=== PATIENT | male | born 1985 | race Caucasian/White ===

== ENCOUNTER 2020-09-07 10:28 | Emergency (ER) | payer OTHER, SELFPAY ==
[2020-09-07 10:39] VITALS: BP 118/73; PULSE 91; RESP 17; TEMP 37; O2SAT 99; BMI 21.9
--- NOTE | 2020-09-07 11:01 | ED_ITS ---
HPI - Medical Clearance General Chief complaint: Medical Clearance Stated complaint: MEDICATION REFILL Time Seen by Provider: 09/07/20 10:57 Source: patient Mode of arrival: ambulatory Limitations: no limitations History of Present Illness HPI Narrative: 35-year-old male with history of type 1 diabetes and also history of substance abuse who presents requesting refill for his test strips and insulin which he is going to run out today. States he is in between primary care doctors and awaiting appointment possibly at the [facility]. Offers no other complaints. Blood sugar usually in the 120-1 60s today prior to arrival was 158. Offers no other complaints. Treatments Prior to Arrival: none Related Information Allergies Allergy/AdvReac Type Severity Reaction Status Date / Time No Known Allergies Allergy Verified 09/07/20 10:42 Review of Systems Review of Systems: Constitutional: No Weight loss, No Fever, No Chills, No Night Sweats, No Fatigue, No Malaise ENT/Mouth: No Hearing loss, No Ear Pain, No Nasal Congestion, No Sinus Pain, No Hoarseness, No sore throat Eyes: No Eye Pain, No Swelling, No Redness, No Foreign Body, No Discharge, No Vision Changes Cardiovascular: No Chest Pain Respiratory: No Cough, No Sputum, No Wheezing Genitourinary: no irregular bleeding, No Dysuria, No Urinary Frequency, No Hematuria, No Urinary Incontinence, No Urgency, No Flank Pain, No Urinary Flow Changes, No Hesitancy Musculoskeletal: No joint pain, No Myalgias, No Joint Swelling Skin: No Skin Lesions, No rash Neuro: No Weakness, No Numbness, No Paresthesias, No Loss of Consciousness, No Dizziness, No Headache Psych:No Social Issues Heme/Lymph: No Bruising, No Bleeding,No Lymphadenopathy Endocrine: No Polyuria, No Polydipsia, No Temperature Intolerance Yes all other systems are reviewed and are negative FOR[facility]LY [facility] Past Medical History Attestation statement: The following information was validated with the patient. Medical History Diabetes 1.5, managed as type 1 Social History Social History Advance Directives: No Advance Directives Information Provided: No Physical Exam Vital Signs: Vital Signs: Last Vital Signs Temp 98.6 F 09/07/20 10:39 Pulse 91 09/07/20 10:39 Resp 17 09/07/20 10:39 BP 118/73 09/07/20 10:39 Pulse Ox 99 09/07/20 10:39 Body Mass Index 21.9 Reviewed Const: General: cooperative and healthy appearing; No acute distress or i ntoxicated appearing Nutritional Appearance: average body habitus Orientation/consciousness: patient oriented x3 HENMT: Head: Yes normal to inspection Ears: hearing grossly normal bilaterally Eyes: General: appearance normal, both eyes and all related structures Visual Littlejohn: normal visual littlejohn by confrontation Chest: Chest palpation & inspection: normal inspection of the chest Resp: Effort & Inspection: normal respiratory effort Cardio: Jugular venous distension: no JVD : General: Yes no CVA tenderness Back/Spine/Pelvis: Back: no CVA tenderness Skin: General skin exam: no rashes or lesions noted Neuro: General: patient oriented x3 Extrem: General: Yes normal to inspection Course Course Course Narrative: Patient uses [address] in [place], [id number] Prescription called in for rx Lantus insulin 40 sq units daily- 1 box roughly 37 day supply Test strips- 1 box 100 strips I did help patient with having used to secure primary care doctor I did give him list to our primary care and the [facility], he will also contact his insurance company to see if there is a fast with facilitate obtaining PCP. Offers no other complaints. Stable for discharge.
--- NOTE | 2020-09-07 11:20 | PC.NURSE ---
pt left without having blood glucose taken. pt asymptomatic, states he checks his own bs qid.
== END 2020-09-07 11:24 | disposition home or self-care (01) ==
PROVIDERS: Emergency Provider Internal Medicine
DX: Z76.0 Encounter for issue of repeat prescription (principal); E10.9 Type 1 diabetes mellitus without complications; Z79.4 Long term (current) use of insulin; Z79.899 Other long term (current) drug therapy
CPT/HCPCS: 99282; 99283; 99292